=== PATIENT | female | born 1990 | race Caucasian/White ===

== ENCOUNTER 2016-10-21 15:26 | Emergency (ER) | payer MEDICAID ==
[2016-10-21 15:32] VITALS: BMI 26.7
[2016-10-21 15:36] VITALS: BP 113/74; PULSE 66; RESP 18; TEMP 98; O2SAT 97
--- NOTE | 2016-10-21 16:11 | ED PDOC ---
Arrival/HPI - General Chief Complaint: Abnormal Skin Integrity Time Seen by Provider: 10/21/16 15:46 Historian: Patient - History of Present Illness Narrative History of Present Illness (Text): 10/21/16 16:07 This 26 yo male presents to this ED c/o b/l lower leg sun burn x 4 days. Patient stated she noticed a couple blister on anterior right lower leg. Patient noted mild swelling of both lower leg. Denies other complain. Last tetanus < 5 years Time/Duration: Other (4 days) Context: Home, Other (beach) Past Medical History - Provider Review Nursing Documentation Reviewed: Yes - Past History Past History: No Previous - Infectious Disease Hx of Infectious Diseases: None - Tetanus Immunization Tetanus Immunization: Unknown - Past Medical History Past Medical History: No Previous - Musculoskeletal/Rheumatological Hx Musculoskeletal Disorders: No Hx Falls: No - Gastrointestinal Hx Gastrointestinal Disorders: No - Genitourinary/Gynecological Hx Urinary Tract Infection: Yes - Psychiatric Hx Depression: No Hx Emotional Abuse: No Hx Physical Abuse: No Hx Substance Use: No - Past Surgical History Past Surgical History: No Previous - Anesthesia Hx Anesthesia: No - Suicidal Assessment Feels Threatened In Home Enviroment: No Family/Social History - Physician Review Nursing Documentation Reviewed: Yes Family/Social History: No Known Family HX Smoking Status: Never Smoked Hx Alcohol Use: Yes Hx Substance Use: No Hx Substance Use Treatment: No Allergies/Home Meds Allergies/Adverse Reactions: Allergies No Known Allergies Allergy (Verified 11/15/15 00:05) Review of Systems - Review of Systems Constitutional: Normal. absent: Fatigue, Weight Change, Fevers Eyes: Normal ENT: Normal Respiratory: Normal. absent: SOB, Cough Cardiovascular: Normal. absent: Chest Pain, Palpitations Gastrointestinal: Normal. absent: Abdominal Pain, Nausea, Vomiting Genitourinary Female: Normal Musculoskeletal: Normal Skin: Other (sun burn) Neurological: Normal. absent: Headache, Dizziness Endocrine: Normal Hemo/Lymphatic: Normal Psychiatric: Normal Physical Exam Vital Signs Temp Pulse Resp BP Pulse Ox 10/21/16 15:35 98.0 F 66 18 113/74 97 Temperature: Afebrile Blood Pressure: Normal Pulse: Regular Respiratory Rate: Normal Appearance: Positive for: Well-Appearing, Non-Toxic, Comfortable Pain Distress: None Mental Status: Positive for: Alert and Oriented X 3 - Systems Exam Head: Present: Atraumatic, Normocephalic Pupils: Present: PERRL Extroacular Muscles: Present: EOMI Conjunctiva: Present: Normal Mouth: Present: Moist Mucous Membranes Neck: Present: Normal Range of Motion Respiratory/Chest: Present: Clear to Auscultation, Good Air Exchange. No: Respiratory Distress, Accessory Muscle Use Cardiovascular: Present: Regular Rate and Rhythm, Normal S1, S2. No: Murmurs Abdomen: Present: Normal Bowel Sounds. No: Tenderness, Distention, Peritoneal Signs Back: Present: Normal Inspection Upper Extremity: Present: Normal Inspection, Normal ROM, NORMAL PULSES, Neurovascularly Intact, Capillary Refill < 2s. No: Cyanosis, Edema Lower Extremity: Present: NORMAL PULSES, Normal ROM, Capillary Refill < 2 s, Other ((+) 1 st degree sun burn b/l anterior lower leg. (+) 2 small blister at right lower leg. Mild swelling and tender. No drainage. No calf tenderness. (+) penis pulses normal b/l, +2). No: Edema Neurological: Present: GCS=15, CN II-XII Intact, Speech Normal, Motor Func Grossly Intact, Normal Sensory Function, Normal Cerebellar Funct, Gait Normal Skin: Present: Warm, Dry, Normal Color. No: Rashes Psychiatric: Present: Alert, Oriented x 3 Medical Decision Making ED Course and Treatment: 10/21/16 16:15 Re-evaluation. Patient feels better. Discussed results and plan with patient who expresses understanding. All questions answered and there is agreement with the plan to discharge home with instructions. Patient stable for discharge. Return if symptoms persist or worsen. Re-evaluation Time: 16:16 Reassessment Condition: Re-examined, Improved Disposition/Present on Arrival - Present on Arrival Any Indicators Present on Arrival: No History of DVT/PE: No History of Uncontrolled Diabetes: No Urinary Catheter: No History of Decub. Ulcer: No History Surgical Site Infection Following: None - Disposition Have Diagnosis and Disposition been Completed?: Yes Diagnosis: Burn from the sun Disposition: HOME/ ROUTINE Disposition Time: 16:16 Patient Plan: Discharge Condition: GOOD Discharge Instructions (ExitCare): Sunburn (ED), Second Degree Burn (ED) Additional Instructions: Call private doctor for follow up visit in 1-2 days. Apply cream on affected areas. Take medication as instructed. Return to emergency if symptoms worsen. Prescriptions: Cephalexin [cephalexin] 500 mg PO QID #20 cap Naproxen 500 mg PO BID #14 tab Silver Sulfadiazine [Silvadene] 1 appl TP BID #1 cream..g. Referrals: PCP,NO [Primary Care Provider] - Follow up with primary [facility] [Outside] - Follow up with primary [facility] [Outside] - Follow up with primary Forms: WORK NOTE
[2016-10-21] MEDS ORDERED: Silver Sulfadiazine 1% Cream (20 gm) TOP STA (16:13)
== END 2016-10-21 16:39 | disposition home or self-care (01) ==
LOC: ED 15:26
DX: L55.1 Sunburn of second degree (principal)

== ENCOUNTER 2017-06-18 16:22 | Emergency (ER) | payer MEDICAID ==
[2017-06-18 16:23] VITALS: BMI 26.7
[2017-06-18 16:30] VITALS: BP 115/74; PULSE 72; RESP 18; TEMP 98.1; O2SAT 100
--- NOTE | 2017-06-18 17:25 | ED PDOC ---
Arrival/HPI - General Chief Complaint: Female Genitourinary Time Seen by Provider: 06/18/17 16:56 Historian: Patient - History of Present Illness Narrative History of Present Illness (Text): 06/18/17 17:18 27yo female with no PMHx who present requesting a test. Patient states she is having nausea intermittently and feeling like she is . She states she took 3home test, one was positive and two was negative. States she came to confirmation. Notes her LMP was 05/22/17. Denies abdominal pain, vaginal bleeding, fever, chills, any other complaint. Past Medical History - Provider Review Nursing Documentation Reviewed: Yes - Past History Past History: No Previous - Infectious Disease Hx of Infectious Diseases: None - Tetanus Immunization Tetanus Immunization: Unknown - Past Medical History Past Medical History: No Previous - Musculoskeletal/Rheumatological Hx Musculoskeletal Disorders: No Hx Falls: No - Gastrointestinal Hx Gastrointestinal Disorders: No - Genitourinary/Gynecological Hx Urinary Tract Infection: Yes - Psychiatric Hx Depression: No Hx Emotional Abuse: No Hx Physical Abuse: No Hx Substance Use: No - Past Surgical History Past Surgical History: No Previous - Anesthesia Hx Anesthesia: No - Suicidal Assessment Feels Threatened In Home Enviroment: No Family/Social History - Physician Review Nursing Documentation Reviewed: Yes Family/Social History: Unknown Family HX Smoking Status: Never Smoked Hx Alcohol Use: Yes Frequency of alcohol use: Socially Hx Substance Use: No Hx Substance Use Treatment: No Allergies/Home Meds Allergies/Adverse Reactions: Allergies No Known Allergies Allergy (Verified 06/18/17 16:30) Home Medications: Home Meds Medication Instructions Recorded Confirmed No Known Home Med 06/18/17 06/18/17 Review of Systems - Physician Review All systems were reviewed & negative as marked: Yes - Review of Systems Constitutional: Normal Eyes: Normal ENT: Normal Respiratory: Normal Cardiovascular: Normal Gastrointestinal: Normal Genitourinary Female: Normal, Other ( test) Musculoskeletal: Normal Skin: Normal Neurological: Normal Endocrine: Normal Hemo/Lymphatic: Normal Psychiatric: Normal Physical Exam Vital Signs Reviewed: Yes Vital Signs Temp Pulse Resp BP Pulse Ox 06/18/17 16:26 98.1 F 72 18 115/74 100 Temperature: Afebrile Blood Pressure: Normal Pulse: Regular Respiratory Rate: Normal Appearance: Positive for: Well-Appearing, Non-Toxic, Comfortable Pain Distress: None Mental Status: Positive for: Alert and Oriented X 3 - Systems Exam Head: Present: Atraumatic, Normocephalic Pupils: Present: PERRL Extroacular Muscles: Present: EOMI Conjunctiva: Present: Normal Mouth: Present: Moist Mucous Membranes Neck: Present: Normal Range of Motion Respiratory/Chest: Present: Clear to Auscultation, Good Air Exchange. No: Respiratory Distress, Accessory Muscle Use Cardiovascular: Present: Regular Rate and Rhythm, Normal S1, S2. No: Murmurs Abdomen: Present: Normal Bowel Sounds. No: Tenderness, Distention, Peritoneal Signs, Rebound, Guarding, McBurney's Point Tender, Rovsing's Sign Present Back: Present: Normal Inspection Upper Extremity: Present: Normal Inspection. No: Cyanosis, Edema Lower Extremity: Present: Normal Inspection. No: Edema Neurological: Present: GCS=15, CN II-XII Intact, Speech Normal Skin: Present: Warm, Dry, Normal Color. No: Rashes Psychiatric: Present: Alert, Oriented x 3, Normal Insight, Normal Concentration Medical Decision Making - Lab Interpretations Lab Results: Lab Results 06/18/17 17:30: Urine HCG, Qual Negative Disposition/Present on Arrival - Present on Arrival Any Indicators Present on Arrival: No History of DVT/PE: No History of Uncontrolled Diabetes: No Urinary Catheter: No History of Decub. Ulcer: No History Surgical Site Infection Following: None - Disposition Have Diagnosis and Disposition been Completed?: Yes Diagnosis: Negative test Disposition: HOME/ ROUTINE Disposition Time: 17:55 Patient Plan: Discharge Condition: STABLE Discharge Instructions (ExitCare): Tests Additional Instructions: Follow up with your [facility] Return to ED for any new or worsening symptoms Referrals: Damari Mar MD [Primary Care Provider] - Follow up with primary Rodolfo Campbell MD [Medical Doctor] - Follow up with primary Forms: [employer] (Danish)
== END 2017-06-18 18:11 | disposition home or self-care (01) ==
LOC: ED 16:22
DX: Z32.02 Encounter for pregnancy test, result negative (principal)

== ENCOUNTER 2017-09-15 17:11 | Emergency (ER) | payer MEDICAID ==
[2017-09-15 17:24] VITALS: BMI 27.3
[2017-09-15 17:28] VITALS: TEMP 98
[2017-09-15] MEDS ORDERED: Sodium Chloride 0.9% 1,000 ML IV STA (18:46)
--- NOTE | 2017-09-15 19:38 | ED PDOC ---
Arrival/HPI - General Chief Complaint: GI Problem Time Seen by Provider: 09/15/17 18:46 Historian: Patient - History of Present Illness Narrative History of Present Illness (Text): 09/15/17 19:35 27-year-old female presents today with nausea and vomiting for weeks. 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 Patient states she is approximately 8 weeks . Patient states her primary care physician has been giving her Zofran ODT without improvement in her symptoms. Patient denies abdominal pain. Denies vaginal bleeding or vaginal discharge. Patient denies chest pain or shortness of breath. Patient states she's feeling generally fatigued. Patient states she's been unable to keep any food down and is feeling nauseous constantly. Patient is . Time/Duration: > week Symptom Onset: Gradual Symptom Course: Unchanged Quality: Other (no pain) Past Medical History - Provider Review Nursing Documentation Reviewed: Yes - Travel History Have you recently traveled outside [place] w/in the past 3 mons?: No - Past History Past History: No Previous - Infectious Disease Hx of Infectious Diseases: None - Tetanus Immunization Tetanus Immunization: Unknown - Past Medical History Past Medical History: No Previous - Musculoskeletal/Rheumatological Hx Musculoskeletal Disorders: No Hx Falls: No - Gastrointestinal Hx Gastrointestinal Disorders: No - Genitourinary/Gynecological Hx Urinary Tract Infection: Yes - Psychiatric Hx Depression: No Hx Emotional Abuse: No Hx Physical Abuse: No Hx Substance Use: No - Past Surgical History Past Surgical History: No Previous - Anesthesia Hx Anesthesia: No - Suicidal Assessment Feels Threatened In Home Enviroment: No Family/Social History - Physician Review Nursing Documentation Reviewed: Yes Family/Social History: Unknown Family HX Smoking Status: Never Smoked Hx Alcohol Use: Yes Hx Substance Use: No Hx Substance Use Treatment: No Allergies/Home Meds Allergies/Adverse Reactions: Allergies No Known Allergies Allergy (Verified 06/18/17 16:30) Home Medications: Home Meds Medication Instructions Recorded Confirmed Ondansetron ODT [Zofran ODT] 1 tab PO DAILY 09/15/17 09/15/17 Review of Systems - Review of Systems Constitutional: Fatigue. absent: Fevers Respiratory: absent: SOB, Cough Cardiovascular: absent: Chest Pain, Palpitations Gastrointestinal: Nausea, Vomiting. absent: Abdominal Pain, Constipation, Diarrhea Genitourinary Female: absent: Dysuria, Frequency, Hematuria, Vaginal Bleeding, Vaginal Discharge Musculoskeletal: absent: Arthralgias, Back Pain, Neck Pain Skin: absent: Rash, Pruritis Neurological: absent: Headache, Dizziness Psychiatric: absent: Anxiety, Depression, Suicidal Ideation Physical Exam Vital Signs Reviewed: Yes Vital Signs Temp Pulse Resp BP Pulse Ox 09/15/17 22:41 65 18 110/75 99 09/15/17 19:40 72 16 117/66 100 09/15/17 17:27 98.0 F 87 18 119/81 97 Temperature: Afebrile Blood Pressure: Normal Pulse: Regular Respiratory Rate: Normal Appearance: Positive for: Well-Appearing, Non-Toxic, Comfortable Pain Distress: None Mental Status: Positive for: Alert and Oriented X 3 - Systems Exam Head: Present: Atraumatic Mouth: Present: Moist Mucous Membranes Neck: Present: Normal Range of Motion Respiratory/Chest: Present: Clear to Auscultation, Good Air Exchange. No: Respiratory Distress, Accessory Muscle Use Cardiovascular: Present: Regular Rate and Rhythm, Normal S1, S2. No: Murmurs Abdomen: No: Tenderness, Distention, Peritoneal Signs, Rebound, Guarding Back: Present: Normal Inspection. No: CVA Tenderness, Midline Tenderness, Paraspinal Tenderness Upper Extremity: Present: Normal ROM Lower Extremity: Present: Normal ROM Neurological: Present: GCS=15, Speech Normal Skin: Present: Warm, Dry, Normal Color. No: Rashes Psychiatric: Present: Alert, Oriented x 3 Medical Decision Making ED Course and Treatment: 09/15/17 19:37 Patient is nontoxic well appearing in no distress. vital signs are stable. pt was given reglan and pepcid and NS iv bolus. CBC: WNL CMP: WNL Beta hC TYPE AND SCREEN: a+ Urinalysis: + TRACE LEUKOCYTES Ultrasound: FINDINGS: Gestation: Intrauterine gestational sac with yolk sac and pole noted. Estimated gestational age based on crown-rump length is 8 weeks 6 days. Heart rate measured at 169 bpm. Uterus/cervix: No acute abnormality as visualized. No myometrial mass. Ovaries: 2.1 cm right ovarian cyst. 2.8 cm left ovarian cyst. Bilateral Doppler flow. Free fluid: No free fluid. IMPRESSION: Single live IUP as above. Bilateral ovarian cysts. pt reassessment; pt feeling better after medications, no vomiting. Discussed all the results the patient. advised pt of 8week 6 day IUP and bilateral ovarian cysts, advised f/u with the radiator specialist within the next 2 days. advised immediate return if symptoms worsen,persist or if new symptoms develop. Advised taking vitamins daily. advised patient of UTI and need for ABX. pt was advised to STOP taking zofran. Patient verbalizes understanding of discharge instructions and need for immediate followup. all aspects of this case were discussed the attending of record. Impression: NAUSEA AND VOMITING IN , URINARY TRACT INFECTION, OVARIAN CYST Increase fluids Dicligis; 2 TABLETs at bedtime FOR NAUSEA/VOMITING MACROBID; 1 TABLET TWICE DAILY X 10 DAYS. Followup with the mash grinder within the next 2 days Return immediately if symptoms worsen persist or if new symptoms develop: High fevers, heavy bleeding, severe abdominal pain, vomiting, diarrhea, dizziness or weakness or any other concerning symptoms develop. TAKE VITAMINS DAILY Reassessment Condition: Re-examined, Improved - Lab Interpretations Lab Results: 09/15/17 19:36 09/15/17 19:36 Lab Results 09/15/17 20:45: Urine Color Yellow, Urine Appearance Clear, Urine pH 6.0, Ur Specific [place] >= 1.030, Urine Protein 30 H, Urine Glucose (UA) Negative, Urine Ketones >=80, Urine Blood Small H, Urine Nitrate Negative, Urine Bilirubin Negative, Urine Urobilinogen 1.0 H, Ur Leukocyte Esterase Trace H, Urine RBC 10 - 15, Urine WBC 2 - 5, Ur Epithelial Cells 4 - 5, Amorphous Sediment Trace, Urine Bacteria Trace 09/15/17 20:19: Blood Type A POSITIVE, Antibody Screen Negative, BBK History Checked Patient has bt 09/15/17 19:36: WBC 6.7 D, RBC 4.89, Hgb 13.9, Hct 39.6, MCV 81.0, MCH 28.4, MCHC 35.1, RDW 13.9, Plt Count 253, MPV 9.4, Gran % 78.1 H, Lymph % (Auto) 16.3 L, [place] % (Auto) 4.9, Eos % (Auto) 0.4 L, Baso % (Auto) 0.3, Gran # 5.25, Lymph # (Auto) 1.1 L, [place] # (Auto) 0.3, Eos # (Auto) 0.0, Baso # (Auto) 0.02 09/15/17 19:36: Beta HCG, Quant 855571.00 H 09/15/17 19:36: Sodium 141, Potassium 3.8, Chloride 102, Carbon Dioxide 22, Anion Gap 21 H, BUN 9, Creatinine 0.5 L, Est GFR ( Amer) > 60, Est GFR ( Non-Af Amer) > 60, Random Glucose 76, Calcium 9.5, Total Bilirubin 0.9, AST 25, ALT 23, Alkaline Phosphatase 58, Total Protein 8.0, Albumin 4.7, Globulin 3.2, Albumin/Globulin Ratio 1.5 - RAD Interpretation Radiology Orders: 09/15/17 18:46 OB TRANSVAGINAL [US] Stat - Medication Orders Current Medication Orders: Discontinued Medications Famotidine (Pepcid) 20 mg IVP STAT STA Stop: 09/15/17 19:07 Last Admin: 09/15/17 19:49 Dose: 20 mg IVP Administration Document 09/15/17 19:49 MS (Rec: 09/15/17 19:50 [email or web address] Charges for Administration # of IVP Administrations 1 Sodium Chloride (Sodium Chloride 0.9%) 1,000 mls @ 999 mls/hr IV .Q1H1M STA Stop: 09/15/17 19:46 Last Admin: 09/15/17 19:50 Dose: 999 mls/hr eMAR Start Stop Document 09/15/17 19:50 MS (Rec: 09/15/17 19:50 MS [facility] [place] [email or web address]) Intravenous Solution Start Date 09/15/17 Start Time 19:50 Metoclopramide HCl (Reglan) 10 mg IVP STAT STA Stop: 09/15/17 19:08 Last Admin: 09/15/17 19:49 Dose: 10 mg IVP Administration Document 09/15/17 19:49 MS (Rec: 09/15/17 19:49 [facility] [email or web address] Charges for Administration # of IVP Administrations 1 Nitrofurantoin Macrocrystals (Macrobid) 100 mg PO STAT STA PRN Reason: Protocol Stop: 09/15/17 22:05 Last Admin: 09/15/17 22:35 Dose: 100 mg Disposition/Present on Arrival - Present on Arrival Any Indicators Present on Arrival: No History of DVT/PE: No History of Uncontrolled Diabetes: No Urinary Catheter: No History of Decub. Ulcer: No History Surgical Site Infection Following: None - Disposition Have Diagnosis and Disposition been Completed?: Yes Diagnosis: Urinary tract infection, Nausea/vomiting in Disposition: HOME/ ROUTINE Disposition Time: 22:52 Patient Plan: Discharge Patient Problems: Current Active Problems Problem Status Onset Nausea/vomiting in Acute Urinary tract infection Acute Condition: GOOD Discharge Instructions (ExitCare): Urinary Tract Infections in Adults, Nausea and Vomiting of (DC) Additional Instructions: Increase fluids Diclegis; 2 TABLET AT BEDSIDE FOR NAUSEA/VOMITING MACROBID; 1 TABLET TWICE DAILY X 10 DAYS. Followup with the mash grinder within the next 2 days Return immediately if symptoms worsen persist or if new symptoms develop: High fevers, heavy bleeding, severe abdominal pain, vomiting, diarrhea, dizziness or weakness or any other concerning symptoms develop. TAKE VITAMINS DAILY Prescriptions: Doxylamine/Pyridoxine HCl (B6) [Diclegis Dr 10-10 mg Tablet] 2 tab PO HS #10 tab Nitrofurantoin Macrocrystals [Macrobid] 100 mg PO BID #20 cap Multivit/Folic Acid/I [ Plus] 1 tab PO DAILY #30 tab Referrals: Damari Mar MD [Primary Care Provider] - Follow up with primary Will Benedict MD [Staff Provider] - [facility] - Follow up with primary Forms: [employer] (Greenlandic), WORK NOTE
[2017-09-15 20:14] LABS: ALB/GLOB RATIO 1.5 (1.1-1.8); ALBUMIN 4.7 g/dL (3.0-4.8); ALT/SGPT 23 U/L (7-56); AST/SGOT 25 U/L (14-36); BLOOD UREA NITROGEN 9 mg/dL (7-21); CALCIUM 9.5 mg/dL (8.4-10.5); GFR AFRICAN-AMERICAN > 60; GFR NON-AFRICAN AMERICAN > 60
[2017-09-15 20:26] LABS: BASO # 0.02 K/mm3 (0.0-2.0); BASO % 0.3 % (0.0-3.0); EOS % 0.4 % (1.5-5.0); GRAN # 5.25 (1.4-6.5); GRAN % 78.1 % (50.0-68.0); HEMOGLOBIN 13.9 g/dL (12.0-16.0); LYMPH # 1.1 (1.2-3.4); LYMPH % 16.3 % (22.0-35.0); MEAN CORPUSCULAR HEMOGLOBIN 28.4 pg (25.0-35.0); MEAN CORPUSCULAR HGB CONC 35.1 g/dl (31.0-37.0); MEAN PLATELET VOLUME 9.4 fl (7.0-11.0); MONO # 0.3 (0.1-0.6); MONO % 4.9 % (1.0-6.0); RBC 4.89 10^6/uL (3.5-6.1); RED CELL DISTRIBUTION WIDTH 13.9 % (11.5-14.5); WHITE BLOOD COUNT 6.7 10^3/ul (4.5-11.0)
--- NOTE | 2017-09-15 21:03 | US ---
EXAM: US First Trimester CLINICAL HISTORY: 27 years old, female; Pain; complicated by abdominal or pelvic pain; Lower; First trimester; Gestational age or lmp: 09 weeks; TECHNIQUE: Real-time transabdominal and transvaginal obstetrical ultrasound of the maternal pelvis and a first trimester with image documentation. COMPARISON: US - TRANSVAGINAL 2015-04-03 17:24 FINDINGS: Gestation: Intrauterine gestational sac with yolk sac and pole noted. Estimated gestational age based on crown-rump length is 8 weeks 6 days. Heart rate measured at 169 bpm. Uterus/cervix: No acute abnormality as visualized. No myometrial mass. Ovaries: 2.1 cm right ovarian cyst. 2.8 cm left ovarian cyst. Bilateral Doppler flow. Free fluid: No free fluid. IMPRESSION: Single live IUP as above. Bilateral ovarian cysts.
[2017-09-15 21:13] LABS: URINE BILIRUBIN NEGATIVE (NEGATIVE); URINE BLOOD SMALL (NEGATIVE); URINE GLUCOSE (UA) NEGATIVE (NEGATIVE); URINE LEUKOCYTE ESTERASE TRACE Leu/uL (NEGATIVE); URINE PROTEIN 30 mg/dL (<30 mg/dL)
[2017-09-15 21:30] LABS: URINE APPEARANCE CLEAR (CLEAR); URINE COLOR YELLOW (YELLOW)
[2017-09-15 21:36] LABS: URINE AMORPHOUS SEDIMENT TRACE; URINE BACTERIA TRACE (NEG)
[2017-09-15 22:42] VITALS: BP 110/75; PULSE 65; O2SAT 99
[2017-09-15 23:37] VITALS: RESP 16
== END 2017-09-15 23:20 | disposition home or self-care (01) ==
LOC: ED 17:11
DX: O21.9 Vomiting of pregnancy, unspecified (principal); O23.41 Unspecified infection of urinary tract in pregnancy, first trimester; Z3A.08 8 weeks gestation of pregnancy
CPT/HCPCS: 76817; 80053; 81001; 84702; 85025; 86850; 86900; 87086; 96374; 96375; 99284; J2765; J7030

== ENCOUNTER 2018-02-04 06:27 | Emergency (ER) | payer MEDICAID ==
[2018-02-04 06:27] VITALS: BMI 27.3
[2018-02-04 06:38] VITALS: RESP 18
--- NOTE | 2018-02-04 07:32 | ED PDOC ---
Arrival/HPI - General Chief Complaint: Trauma Time Seen by Provider: 02/04/18 07:09 Historian: Patient - History of Present Illness Narrative History of Present Illness (Text): 02/04/18 07:29 A 27 year old female, with no significant past medical history, presents to the emergency department complaining of s/p fall onto back. Patient is currently 29 weeks . Patient reports she slipped onto her back. Patient denies any vaginal bleeding/discharge, or any other symptomatic/physical complaints at this time.pt does report no fm. No PMD 02/04/18 11:30 Past Medical History - Provider Review Nursing Documentation Reviewed: Yes - Past History Past History: No Previous - Infectious Disease Hx of Infectious Diseases: None - Tetanus Immunization Tetanus Immunization: Unknown - Past Medical History Past Medical History: No Previous - Musculoskeletal/Rheumatological Hx Musculoskeletal Disorders: No Hx Falls: No - Gastrointestinal Hx Gastrointestinal Disorders: No - Genitourinary/Gynecological Hx Urinary Tract Infection: Yes - Psychiatric Hx Depression: No Hx Emotional Abuse: No Hx Physical Abuse: No Hx Substance Use: No - Past Surgical History Past Surgical History: No Previous - Anesthesia Hx Anesthesia: No - Suicidal Assessment Feels Threatened In Home Enviroment: No Family/Social History - Physician Review Nursing Documentation Reviewed: Yes Family/Social History: No Known Family HX Smoking Status: Never Smoked Hx Alcohol Use: No Hx Substance Use: No Hx Substance Use Treatment: No Allergies/Home Meds Allergies/Adverse Reactions: Allergies No Known Allergies Allergy (Verified 02/04/18 06:38) Review of Systems - Physician Review All systems were reviewed & negative as marked: Yes - Review of Systems Constitutional: absent: Fevers, Night Sweats Respiratory: absent: SOB, Cough Cardiovascular: absent: Chest Pain Gastrointestinal: absent: Abdominal Pain, Diarrhea, Nausea, Vomiting Genitourinary Female: absent: Dysuria, Frequency, Hematuria, Urine Output Change s, Vaginal Bleeding, Vaginal Discharge Neurological: absent: Headache, Dizziness Physical Exam Vital Signs Reviewed: Yes Vital Signs Temp Pulse Resp BP Pulse Ox 02/04/18 06:33 97.4 F L 92 H 18 116/76 100 Temperature: Afebrile Blood Pressure: Normal Pulse: Regular Respiratory Rate: Normal Appearance: Positive for: Well-Appearing, Non-Toxic, Comfortable Pain Distress: None Mental Status: Positive for: Alert and Oriented X 3 - Systems Exam Head: Present: Atraumatic, Normocephalic Pupils: Present: PERRL Extroacular Muscles: Present: EOMI Conjunctiva: Present: Normal Mouth: Present: Moist Mucous Membranes Neck: Present: Normal Range of Motion Respiratory/Chest: Present: Clear to Auscultation, Good Air Exchange. No: Respiratory Distress, Accessory Muscle Use Cardiovascular: Present: Regular Rate and Rhythm, Normal S1, S2. No: Murmurs Abdomen: No: Tenderness, Distention, Peritoneal Signs Back: Present: Normal Inspection Upper Extremity: Present: Normal Inspection. No: Cyanosis, Edema Lower Extremity: Present: Normal Inspection. No: Edema Neurological: Present: GCS=15, CN II-XII Intact, Speech Normal Skin: Present: Warm, Dry, Normal Color. No: Rashes Psychiatric: Present: Alert, Oriented x 3, Normal Insight, Normal Concentration Medical Decision Making ED Course and Treatment: 02/04/18 07:31 Impression: 27 year old female arrives for slip and fall onto back. Physical exam is benign. pt will need obgyn eval and tocographic monitoring and transfer. upon telling pt about potential transfer, pt asks to leave immediately and will consult with her obgyn. i adivsed her of risks, including miscarriage. pt signs AMA> Plan: -- Reassess and disposition Prior Visits: Notes and results from previous visits were reviewed. Patient was last seen in the emergency department on 09/15/2017 for nausea and vomiting. Patient was discharged home. Progress Notes: 02/04/18 07:32 I have explained to the patient that she may be transferred to another facility to have topographic monitoring performed, however patient refuses to have this done. Patient signs out against medical advice. 02/04/18 11:30 - Scribe Statement The provider has reviewed the documentation as recorded by the Ena Johnson Provider Scribe Attestation: All medical record entries made by the Karenibfannie were at my direction and personally dictated by me. I have reviewed the chart and agree that the record accurately reflects my personal performance of the history, physical exam, medical decision making, and the department course for this patient. I have also personally directed, reviewed, and agree with the discharge instructions and disposition. Disposition/Present on Arrival - Present on Arrival Any Indicators Present on Arrival: No History of DVT/PE: No History of Uncontrolled Diabetes: No Urinary Catheter: No History of Decub. Ulcer: No History Surgical Site Infection Following: None - Disposition Have Diagnosis and Disposition been Completed?: Yes Diagnosis: Fall, Left against medical advice Disposition: AGAINST MEDICAL ADVICE Disposition Time: 07:00 Condition: UNKNOWN Discharge Instructions (ExitCare): Preventing Falls in the Older Adult, Leaving Against Medical Advice Additional Instructions: return to er with worsening symptoms or concerns. Forms: [employer] ([place]ian)
[2018-02-04 07:57] VITALS: BP 106/78; PULSE 72; TEMP 98.6; O2SAT 99
== END 2018-02-04 07:16 | disposition left against medical advice (07) ==
LOC: ED 06:27
DX: O26.93 Pregnancy related conditions, unspecified, third trimester (principal); Z3A.29 29 weeks gestation of pregnancy; W01.0XXA Fall on same level from slipping, tripping and stumbling without subsequent striking against object, initial encounter; Y92.9 Unspecified place or not applicable